=== PATIENT | female | born 1955 | race Caucasian/White ===

== ENCOUNTER 2020-04-12 12:10 | Emergency (ER) | payer OTHER, MEDICARE ==
[~2020-04-12] VITALS: Ht 172.7 cm; Wt 81.6 kg
[2020-04-12 12:26] VITALS: BP_SYST 153
[2020-04-12 14:31] VITALS: BP_SYST 153
== END 2020-04-12 14:31 | disposition home or self-care (01) ==
LOC: SED 12:10
DX: I80.251 Phlebitis and thrombophlebitis of right calf muscular vein (principal); Z88.2 Allergy status to sulfonamides
CPT/HCPCS: 93970; 99284